=== PATIENT | female | born 1985 | race Caucasian/White ===

== ENCOUNTER 2019-02-23 21:49 | Emergency (ER) | payer OTHER ==
[2019-02-23] MEDS: IBUPROFEN 600 MG TAB PO (23:58)
== END 2019-02-24 00:42 | disposition left against medical advice (07) ==
LOC: FTE 02-24 00:42
DX: S00.03XA Contusion of scalp, initial encounter (principal); X58.XXXA Exposure to other specified factors, initial encounter; Y92.9 Unspecified place or not applicable
CPT/HCPCS: 99282; Z7502